=== PATIENT | female | born 1960 | race Caucasian/White ===

== ENCOUNTER 2017-10-14 10:14 | Emergency (ER) | payer MEDICARE, OTHER ==
[~2017-10-14] VITALS: Ht 152.4 cm; Wt 46.3 kg
[~2017-10-14 10:14] MED LIST: ACYC200 PO; ACYC800 PO; ALBU90OI6 INH; ALBUIS; ALPR.5 PO; ASPI81CH PO; Amoxicillin500 MG PO; CYCL10 PO; DIAZ2; FAMC500 PO; FAMO20 PO; Flecainide Acet50 MG PO; GABA300 PO; HYDACE5; HYDACE5 PO; HYDR1TAB94 PO; IBUP800 PO; LISI20 PO; LISI5 PO; LORA1 PO; METCAR500 PO; METO10 PO; NAPR500; NAPR500 PO; NAPR550; Norco 5-325 Ta1 EACH PO; PENVK500 PO; Pepcid40 MG PO; TRAM50; TRAM50 PO
[2017-10-14 11:26] LABS: Influenza A Negative (NEGATIVE); Influenza B Negative (NEGATIVE)
[2017-10-14] MEDS ORDERED: BENZ100A PO (11:44)
[2018-04-29] MEDS ORDERED: TRAM50 PO (12:34)
[2018-04-29] MEDS ORDERED: Hydrocodone-Ap1 EA23 PO (12:35)
[2018-04-29] MEDS ORDERED: CYCL10 PO (13:27)
[2018-04-29] MEDS ORDERED: IBUP800 PO (13:27)
== END 2017-10-14 11:52 | disposition home or self-care (01) ==
LOC: ER 10:14
PROVIDERS: Physician Assistant
DX: J32.9 Chronic sinusitis, unspecified (principal); Z88.5 Allergy status to narcotic agent; Z91.048 Other nonmedicinal substance allergy status; Z88.8 Allergy status to other drugs, medicaments and biological substances; Z79.899 Other long term (current) drug therapy; Z79.2 Long term (current) use of antibiotics; Z90.710 Acquired absence of both cervix and uterus; Z90.89 Acquired absence of other organs; Z87.891 Personal history of nicotine dependence
CPT/HCPCS: 71046; 87804; 99283

== ENCOUNTER 2017-11-22 12:16 | Emergency (ER) | payer MEDICARE, OTHER ==
[~2017-11-22] VITALS: Ht 152.4 cm; Wt 46.3 kg
[~2017-11-22 12:16] MED LIST changes: +BENZ100A PO
[2017-11-22] MEDS ORDERED: PRED20 PO (13:25)
[2017-11-22] MEDS ORDERED: SPACE CHAMBER1 EACH INH (13:25)
[2017-11-22] MEDS ORDERED: ALBU90OI INH (13:25)
[2017-11-22] MEDS ORDERED: DOXY100T53 PO (13:25)
[2018-04-29] MEDS ORDERED: TRAM50 PO (12:34)
[2018-04-29] MEDS ORDERED: Hydrocodone-Ap1 EA23 PO (12:35)
[2018-04-29] MEDS ORDERED: IBUP800 PO (13:27)
[2018-04-29] MEDS ORDERED: CYCL10 PO (13:27)
== END 2017-11-22 13:39 | disposition home or self-care (01) ==
LOC: ER 12:16
DX: J18.9 Pneumonia, unspecified organism (principal); Z88.5 Allergy status to narcotic agent; Z91.048 Other nonmedicinal substance allergy status; Z88.8 Allergy status to other drugs, medicaments and biological substances; Z79.899 Other long term (current) drug therapy; Z87.891 Personal history of nicotine dependence
CPT/HCPCS: 71046; 94640; 99284

== ENCOUNTER 2018-06-02 11:54 | Emergency (ER) | payer MEDICARE, OTHER ==
[~2018-06-02] VITALS: Ht 152.4 cm; Wt 49.9 kg
[~2018-06-02 11:54] MED LIST changes: +ALBU90OI INH; +DOXY100T53 PO; +Hydrocodone-Ap1 EA23 PO; +PRED20 PO; +SPACE CHAMBER1 EACH INH
[2018-06-02] MEDS ORDERED: NEOPOLHCSU RIGHTEAR (13:57)
[2018-06-02] MEDS ORDERED: Cipro250 MG PO (13:57)
[2018-06-02] MEDS ORDERED: IBUP800 PO (13:58)
== END 2018-06-02 14:07 | disposition home or self-care (01) ==
LOC: ER 11:54
DX: H60.91 Unspecified otitis externa, right ear (principal); Z87.891 Personal history of nicotine dependence
CPT/HCPCS: 99282

== ENCOUNTER → 2019-03-16 | Outpatient (CLI) | payer OTHER ==
[~2019-03-16] MED LIST changes: +Cipro250 MG PO; +ESCI10 PO; +NEOPOLHCSU RIGHTEAR; +OMEPRAZOLE20 MG PO; +VOLTAREN100 GM TOP
== END | disposition home or self-care (01) ==
LOC: LAB SHORT 12:08 → LAB EV 12:08
DX: N39.0 Urinary tract infection, site not specified (principal)
CPT/HCPCS: 87086

== ENCOUNTER 2019-06-10 06:40 | Day surgery (SDC) | payer OTHER ==
[~2019-06-10] VITALS: Ht 152.4 cm; Wt 56.2 kg
[~2019-06-10 06:40] MED LIST changes: -OMEPRAZOLE20 MG PO
[2019-06-10] MEDS ORDERED: TRAM50 PO (07:20)
--- NOTE | 2019-06-10 08:01 | NUR ---
06/10/19 0801 Kathy Beard PT UP TO RESTROOM WITH SBA. RESTING COMFORTABLY IN BED WITH CALL LIGHT WITHIN REACH. DENIES NEEDS AT THIS TIME.
--- NOTE | 2019-06-10 09:05 | NUR ---
06/10/19 0905 Yesenia Roberts LASER PRECAUTIONS TAKEN
--- NOTE | 2019-06-10 10:15 | NUR ---
06/10/19 1015 Marlena Boyd PT COMPLAINS OF 10/10 PAIN BUT REFUSES PAIN MEDICATION, SHE STATES SHE IS AFRAID THAT IT WILL MAKE HER SICK, SHE WAS MEDICATED FOR NAUSEA IN PAR AND IT HAS RESOLVED BUT SHE IS AFRAID IT WILL COME BACK AND WOULD LIKE TO TRY ICY FLUIDS AND REST. VSS, AND CALL LIGHT IS IN REACH.
[2019-07-06] MEDS ORDERED: OMEPRAZOLE20 MG PO (10:02)
== END 2019-06-10 10:57 | disposition home or self-care (01) ==
LOC: ORSCSDS 06:40
PROVIDERS: Otolaryngology
PROC: 0CBV8ZX Excision of Left Vocal Cord, Via Natural or Artificial Opening Endoscopic, Diagnostic (ICD-10-PCS; principal; 2019-06-10 08:15)
DX: J38.3 Other diseases of vocal cords (principal); I10 Essential (primary) hypertension; J44.9 Chronic obstructive pulmonary disease, unspecified; Z87.891 Personal history of nicotine dependence; Z79.899 Other long term (current) drug therapy
CPT/HCPCS: 88305; J0171; J0330; J1100; J1885; J2250; J2405; J2704; J2710; J2765; J3010; J7120

== ENCOUNTER 2019-07-09 09:30 | Day surgery (SDC) | payer OTHER ==
[~2019-07-09] VITALS: Ht 162.6 cm; Wt 57.8 kg
[~2019-07-09 09:30] MED LIST changes: +OMEPRAZOLE20 MG PO
--- NOTE | 2019-07-09 10:55 | NUR ---
07/09/19 1055 Serjio Glaser UPDATED PT ON DELAY IN ROOM DUE TO PREVIOUS CASES RUNNING LATE. PT DENIES ANY NEEDS AT THIS TIME. CALL LIGHT IN REACH. BED IN LOWEST LOCKED POSITION.
== END 2019-07-09 13:10 | disposition home or self-care (01) ==
LOC: ORSCSDS 09:30
PROVIDERS: Internal Medicine Gastroenterology
PROC: 0DB68ZX Excision of Stomach, Via Natural or Artificial Opening Endoscopic, Diagnostic (ICD-10-PCS; principal; 2019-07-09 11:00)
DX: R10.13 Epigastric pain (principal); K31.7 Polyp of stomach and duodenum; F41.9 Anxiety disorder, unspecified; Z79.899 Other long term (current) drug therapy
CPT/HCPCS: 88305; 88342; J2704; J7120

== ENCOUNTER 2019-08-06 07:34 | Day surgery (SDC) | payer OTHER ==
[~2019-08-06] VITALS: Ht 152.4 cm; Wt 56.8 kg
--- NOTE | 2019-08-06 09:39 | NUR ---
08/06/19 0939 Marlena Boyd PT COMPLAINS OF NAUSEA IN PAR AND DR RUBIO ADDS REGLAN 10MG TO HER LACTATED RINGERS AND LABLES THE BAG OF FLUIDS WELL. REPORT GIVEN TO [facility].
== END 2019-08-06 10:36 | disposition home or self-care (01) ==
LOC: ORSCSDS 07:34
PROVIDERS: Podiatrist Foot & Ankle Surgery
PROC: 0JBQ0ZZ Excision of Right Foot Subcutaneous Tissue and Fascia, Open Approach (ICD-10-PCS; principal; 2019-08-06 09:00)
DX: D17.39 Benign lipomatous neoplasm of skin and subcutaneous tissue of other sites (principal); I10 Essential (primary) hypertension; J44.9 Chronic obstructive pulmonary disease, unspecified; Z87.891 Personal history of nicotine dependence; Z79.899 Other long term (current) drug therapy
CPT/HCPCS: 88304; J0690; J2001; J2250; J2405; J2704; J2765; J3010; J7120

== ENCOUNTER → 2019-11-29 | Outpatient (CLI) | payer OTHER ==
[2019-11-29 15:17] LABS: BASOPHILS ABSOLUTE AUTO 0.13 K/mm3 (0.00-0.23); BASOPHILS PERCENT AUTO 2 % (0-2); EOSINOPHILS ABSOLUTE AUTO 0.25 K/mm3 (0.00-0.68); EOSINOPHILS PERCENT AUTO 3 % (0-6); Hematocrit 39.3 % (33.0-51.0); Hemoglobin 13.1 g/dL (11.5-16.0); IMMATURE GRAN ABSOLUTE AUTO 0.02 K/mm3 (0.00-0.10); IMMATURE GRAN PERCENT AUTO 0 % (0-1); LYMPHOCYTES ABSOLUTE AUTO 3.16 K/mm3 (0.84-5.20); LYMPHOCYTES PERCENT AUTO 35 % (21-46); MONOCYTES ABSOLUTE AUTO 0.68 K/mm3 (0.16-1.47); MONOCYTES PERCENT AUTO 8 % (4-13); Mean Corpuscular HGB 31.6 pg (26.0-34.0); Mean Corpuscular HGB Conc 33.3 g/dL (31.5-36.5); Mean Corpuscular Volume 95 fL (80-100); Mean Platelet Volume 11.1 fL (9.1-12.4); NEUTROPHILS ABSOLUTE AUTO 4.71 K/mm3 (1.96-9.15); NEUTROPHILS PERCENT AUTO 53 % (41-73); Platelet Count 366 K/mm3 (150-400); RDW Coefficient Variation 13.1 % (11.7-14.2); RDW Standard Deviation 45.1 fL (35.1-46.3); Red Blood Cell Count 4.14 M/mm3 (3.80-5.20); White Blood Cell Count 8.95 K/mm3 (4.00-11.30)
[2019-11-29 15:28] LABS: Alanine Aminotransfer (ALT/SGP 20 U/L (12-78); Albumin, Blood 3.8 g/dL (3.4-5.0); Alk Phos 114 U/L (40-126); Anion Gap 11 mmol/L (6-16); Aspartate Aminotrans (AST/SGOT 14 U/L (12-37); Bilirubin, Total 0.2 mg/dL (0.1-1.0); Blood Urea Nitrogen 14 mg/dL (8-24); Bun/Creatinine Ratio 18.7 (12.0-20.0); CO2, Blood 26 mmol/L (21-32); Calcium, Blood 8.8 mg/dL (8.5-10.1); Chloride, Blood 105 mmol/L (98-108); Creatinine, Blood 0.75 mg/dL (0.40-1.00); Globulin, Blood 3.8 g/dL (2.2-4.0); Glomerular Filtration Rate >60 (60-); Glucose, Blood 94 mg/dL (70-99); Potassium, Blood 3.8 mmol/L (3.5-5.5); Sodium, Blood 142 mmol/L (136-145); Total Protein, Blood 7.6 g/dL (6.4-8.2)
== END | disposition home or self-care (01) ==
LOC: LAB EV 15:12 → LAB SHORT 15:12
PROVIDERS: Physician Assistant
DX: R10.84 Generalized abdominal pain (principal); N39.0 Urinary tract infection, site not specified
CPT/HCPCS: 80053; 83690; 85025; 87086

== ENCOUNTER 2020-02-24 10:28 | Emergency (ER) | payer OTHER ==
[~2020-02-24] VITALS: Ht 152.4 cm; Wt 54.4 kg
[2020-02-24] MEDS ORDERED: HYDROCODON-ACE1 EAC3 PO (11:02)
[2020-02-24] MEDS ORDERED: CYCL10 PO (11:03)
[2020-02-24 11:27] LABS: Source, Urine Clean Catch
[2020-02-24 11:46] LABS: Bilirubin, Urine Neg (Neg); Blood, Urine 5+ (Neg); Glucose Qualitative, Urine Neg (Neg); Ketones, Urine Neg (Neg); Leukocyte Esterase, Urine 3+ (Neg); Nitrite, Urine Neg (Neg); Protein, Urine Neg (Neg); Specific Gravity, Urine 1.025 (1.003-1.022); Urobilinogen, Urine NORM (Normal)
[2020-02-24 11:48] LABS: BASOPHILS ABSOLUTE AUTO 0.11 K/mm3 (0.00-0.23); BASOPHILS PERCENT AUTO 1 % (0-2); EOSINOPHILS PERCENT AUTO 3 % (0-6); Hematocrit 41.7 % (33.0-51.0); Hemoglobin 13.4 g/dL (11.5-16.0); IMMATURE GRAN ABSOLUTE AUTO 0.02 K/mm3 (0.00-0.10); IMMATURE GRAN PERCENT AUTO 0 % (0-1); LYMPHOCYTES ABSOLUTE AUTO 2.53 K/mm3 (0.84-5.20); LYMPHOCYTES PERCENT AUTO 24 % (21-46); MONOCYTES ABSOLUTE AUTO 0.84 K/mm3 (0.16-1.47); MONOCYTES PERCENT AUTO 8 % (4-13); Mean Corpuscular HGB 31.7 pg (26.0-34.0); Mean Corpuscular HGB Conc 32.1 g/dL (31.5-36.5); Mean Corpuscular Volume 99 fL (80-100); Mean Platelet Volume 10.8 fL (9.1-12.4); NEUTROPHILS ABSOLUTE AUTO 6.76 K/mm3 (1.96-9.15); NEUTROPHILS PERCENT AUTO 64 % (41-73); Platelet Count 352 K/mm3 (150-400); RDW Coefficient Variation 12.8 % (11.7-14.2); Red Blood Cell Count 4.23 M/mm3 (3.80-5.20); White Blood Cell Count 10.56 K/mm3 (4.00-11.30)
[2020-02-24 11:59] LABS: Appearance, Urine Hazy (Clear); Color, Urine Yellow (P-Yellow)
[2020-02-24 12:00] LABS: Bacteria Few /hpf; Mucus Light (0-Heavy); Squamous Epithelial Cells Few /hpf (Few)
[2020-02-24 12:19] LABS: Alanine Aminotransfer (ALT/SGP 20 U/L (12-78); Albumin, Blood 3.7 g/dL (3.4-5.0); Albumin/Globulin Ratio 1.1 (0.8-1.8); Alk Phos 98 U/L (50-136); Anion Gap 6 mmol/L (6-16); Aspartate Aminotrans (AST/SGOT 13 U/L (12-37); Bilirubin, Total 0.3 mg/dL (0.1-1.0); Blood Urea Nitrogen 18 mg/dL (8-24); CO2, Blood 26 mmol/L (21-32); Calcium, Blood 9.1 mg/dL (8.5-10.1); Chloride, Blood 108 mmol/L (98-108); Globulin, Blood 3.5 g/dL (2.2-4.0); Glomerular Filtration Rate >60 (60-); Glucose, Blood 76 mg/dL (70-99); Potassium, Blood 4.1 mmol/L (3.5-5.5); Sodium, Blood 140 mmol/L (136-145); Total Protein, Blood 7.2 g/dL (6.4-8.2)
[2020-02-24] MEDS ORDERED: KEFLEX500 MG PO (12:30)
== END 2020-02-24 12:37 | disposition home or self-care (01) ==
LOC: ER 10:28
PROVIDERS: Emergency Medicine
DX: N39.0 Urinary tract infection, site not specified (principal); I10 Essential (primary) hypertension; Z88.8 Allergy status to other drugs, medicaments and biological substances; Z91.048 Other nonmedicinal substance allergy status; Z88.5 Allergy status to narcotic agent; Z79.899 Other long term (current) drug therapy; Z87.891 Personal history of nicotine dependence
CPT/HCPCS: 36415; 80053; 81001; 83690; 85025; 87086; 93005; 93010; 99284-25

== ENCOUNTER → 2020-04-21 | Outpatient (CLI) | payer OTHER ==
[~2020-04-21] MED LIST changes: +HYDROCODON-ACE1 EAC3 PO; +KEFLEX500 MG PO
== END ==
LOC: PLD 08:24 → LAB SHORT 08:24
DX: L57.0 Actinic keratosis (principal)
CPT/HCPCS: 88305

== ENCOUNTER → 2020-06-14 | Outpatient (CLI) | payer OTHER ==
[~2020-06-14] MED LIST changes: +VOLTAREN ARTHRI20 GM
== END | disposition home or self-care (01) ==
LOC: LAB SHORT 18:25 → LAB 18:25
DX: G89.4 Chronic pain syndrome (principal); Z79.899 Other long term (current) drug therapy
CPT/HCPCS: G0480

== ENCOUNTER 2020-06-22 07:34 | Day surgery (SDC) | payer OTHER ==
[~2020-06-22] VITALS: Ht 152.4 cm; Wt 54.5 kg
== END 2020-06-22 10:27 | disposition home or self-care (01) ==
LOC: ORSCSDS 07:34
PROVIDERS: Orthopaedic Surgery
PROC: 0LB50ZZ Excision of Right Lower Arm and Wrist Tendon, Open Approach (ICD-10-PCS; principal; 2020-06-22 09:00)
DX: M67.431 Ganglion, right wrist (principal); I10 Essential (primary) hypertension; J44.9 Chronic obstructive pulmonary disease, unspecified; Z87.891 Personal history of nicotine dependence; Z79.899 Other long term (current) drug therapy
CPT/HCPCS: 88304; J0171; J0690; J2250; J2405; J2704; J3010; J7120

== ENCOUNTER → 2020-08-16 | Outpatient (CLI) | payer OTHER ==
[2020-08-16 12:09] LABS: BASOPHILS ABSOLUTE AUTO 0.09 K/mm3 (0.00-0.23); BASOPHILS PERCENT AUTO 1 % (0-2); EOSINOPHILS ABSOLUTE AUTO 0.24 K/mm3 (0.00-0.68); EOSINOPHILS PERCENT AUTO 3 % (0-6); Hematocrit 39.2 % (33.0-51.0); Hemoglobin 12.7 g/dL (11.5-16.0); IMMATURE GRAN ABSOLUTE AUTO 0.01 K/mm3 (0.00-0.10); IMMATURE GRAN PERCENT AUTO 0 % (0-1); LYMPHOCYTES ABSOLUTE AUTO 2.25 K/mm3 (0.84-5.20); LYMPHOCYTES PERCENT AUTO 29 % (21-46); MONOCYTES ABSOLUTE AUTO 0.64 K/mm3 (0.16-1.47); MONOCYTES PERCENT AUTO 8 % (4-13); Mean Corpuscular HGB 31.2 pg (26.0-34.0); Mean Corpuscular HGB Conc 32.4 g/dL (31.5-36.5); Mean Corpuscular Volume 96 fL (80-100); Mean Platelet Volume 10.9 fL (9.1-12.4); NEUTROPHILS ABSOLUTE AUTO 4.46 K/mm3 (1.96-9.15); NEUTROPHILS PERCENT AUTO 58 % (41-73); Platelet Count 347 K/mm3 (150-400); RDW Coefficient Variation 13.5 % (11.7-14.2); RDW Standard Deviation 47.8 fL (35.1-46.3); Red Blood Cell Count 4.07 M/mm3 (3.80-5.20); White Blood Cell Count 7.69 K/mm3 (4.00-11.30)
[2020-08-16 12:26] LABS: Alanine Aminotransfer (ALT/SGP 17 U/L (12-78); Albumin, Blood 4.1 g/dL (3.4-5.0); Albumin/Globulin Ratio 1.4 (0.8-1.8); Alk Phos 86 U/L (40-126); Anion Gap 7 mmol/L (6-16); Aspartate Aminotrans (AST/SGOT 11 U/L (12-37); Bilirubin, Total 0.3 mg/dL (0.1-1.0); Blood Urea Nitrogen 16 mg/dL (8-24); CO2, Blood 28 mmol/L (21-32); Calcium, Blood 9.2 mg/dL (8.5-10.1); Chloride, Blood 106 mmol/L (98-108); Creatinine, Blood 0.94 mg/dL (0.40-1.00); Globulin, Blood 2.9 g/dL (2.2-4.0); Glomerular Filtration Rate >60 (60-); Glucose, Blood 77 mg/dL (70-99); Potassium, Blood 4.1 mmol/L (3.5-5.5); Sodium, Blood 141 mmol/L (136-145)
== END ==
LOC: LAB SHORT 12:00 → LAB EV 12:00
PROVIDERS: Family Medicine
DX: R10.9 Unspecified abdominal pain (principal)
CPT/HCPCS: 80053; 83690; 85025

== ENCOUNTER → 2022-09-28 | Outpatient (CLI) | payer OTHER ==
[2022-09-28 11:34] LABS: BASOPHILS ABSOLUTE AUTO 0.11 K/mm3 (0.00-0.23); BASOPHILS PERCENT AUTO 1 % (0-2); EOSINOPHILS ABSOLUTE AUTO 0.26 K/mm3 (0.00-0.68); EOSINOPHILS PERCENT AUTO 3 % (0-6); Hematocrit 39.6 % (33.0-51.0); Hemoglobin 12.9 g/dL (11.5-16.0); IMMATURE GRAN ABSOLUTE AUTO 0.03 K/mm3 (0.00-0.10); IMMATURE GRAN PERCENT AUTO 0 % (0-1); LYMPHOCYTES PERCENT AUTO 27 % (21-46); MONOCYTES PERCENT AUTO 9 % (4-13); Mean Corpuscular HGB 31.9 pg (26.0-34.0); Mean Corpuscular HGB Conc 32.6 g/dL (31.5-36.5); Mean Corpuscular Volume 98 fL (80-100); NEUTROPHILS ABSOLUTE AUTO 5.47 K/mm3 (1.96-9.15); NEUTROPHILS PERCENT AUTO 60 % (41-73); Platelet Count 507 K/mm3 (150-400); RDW Coefficient Variation 13.2 % (11.7-14.2); RDW Standard Deviation 47.8 fL (35.1-46.3); Red Blood Cell Count 4.04 M/mm3 (3.80-5.20); White Blood Cell Count 9.17 K/mm3 (4.00-11.30)
[2022-09-28 12:11] LABS: Albumin, Blood 3.4 g/dL (3.4-5.0); Albumin/Globulin Ratio 0.9 (0.8-1.8); Bilirubin, Total 0.3 mg/dL (0.1-1.0); Bun/Creatinine Ratio 15.9 (12.0-20.0); Calcium, Blood 9.4 mg/dL (8.5-10.1); Creatinine, Blood 0.75 mg/dL (0.40-1.00); Globulin, Blood 3.8 g/dL (2.2-4.0); Potassium, Blood 4.2 mmol/L (3.5-5.5); Total Protein, Blood 7.2 g/dL (6.4-8.2)
== END | disposition home or self-care (01) ==
LOC: LAB SHORT 11:27
PROVIDERS: Physician Assistant
DX: N39.0 Urinary tract infection, site not specified (principal); R10.9 Unspecified abdominal pain
CPT/HCPCS: 80053; 82150; 83690; 85025

== ENCOUNTER 2023-03-29 08:56 | Day surgery (SDC) | payer OTHER ==
[~2023-03-29] VITALS: Ht 152.4 cm; Wt 53.7 kg
[2023-03-29] MEDS ORDERED: HYDROCODONE-AC1 EA19 PO (09:29)
[2023-03-29] MEDS ORDERED: ATOR40TA (09:30)
[2023-03-29] MEDS ORDERED: METOPROLOL SUCC25 MG PO (09:30)
[2023-03-29 11:46] VITALS: BP 138/80
--- NOTE | 2023-03-29 12:13 | NUR ---
03/29/23 1213 Melida Coleman PT EXPRESSED DECREASE IN NAUSEA WITH MEDICATION GIVEN PER ORDERS, X1. PT DENIED PAIN. ABLE TO EAT AND DRINK WITH NO ISSUES. NO EMESIS. PT'S AT BEDSIDE FOR DISCHARGE TEACHING. VSS. SEE VS STRIP FOR COMPLETE DETAILS. PT CALM, COOPERATVIE, AND PLEASANT. EXPRESSED READINESS TO GO HOME.
== END 2023-03-29 12:10 | disposition home or self-care (01) ==
LOC: ORSCSDS 08:56
PROVIDERS: Podiatrist Foot & Ankle Surgery
PROC: 0JBR0ZX Excision of Left Foot Subcutaneous Tissue and Fascia, Open Approach, Diagnostic (ICD-10-PCS; principal; 2023-03-29 10:30)
DX: M67.472 Ganglion, left ankle and foot (principal); I10 Essential (primary) hypertension; E78.5 Hyperlipidemia, unspecified; J44.9 Chronic obstructive pulmonary disease, unspecified; Z87.891 Personal history of nicotine dependence; F41.9 Anxiety disorder, unspecified; Z79.899 Other long term (current) drug therapy
CPT/HCPCS: 88304; A9270; J0690; J1100; J1885; J2250; J2405; J2704; J2795; J3010; J7120

== ENCOUNTER → 2023-07-10 | Outpatient (CLI) | payer OTHER ==
[~2023-07-10] MED LIST changes: +ATOR40TA; +HYDROCODONE-AC1 EA19 PO; +METOPROLOL SUCC25 MG PO
[2023-07-10 13:00] LABS: BASOPHILS ABSOLUTE AUTO 0.08 K/mm3 (0.00-0.23); BASOPHILS PERCENT AUTO 1 % (0-2); EOSINOPHILS ABSOLUTE AUTO 0.54 K/mm3 (0.00-0.68); EOSINOPHILS PERCENT AUTO 5 % (0-6); Hematocrit 41.2 % (33.0-51.0); Hemoglobin 13.2 g/dL (11.5-16.0); IMMATURE GRAN ABSOLUTE AUTO 0.03 K/mm3 (0.00-0.10); IMMATURE GRAN PERCENT AUTO 0 % (0-1); LYMPHOCYTES ABSOLUTE AUTO 2.85 K/mm3 (0.84-5.20); LYMPHOCYTES PERCENT AUTO 28 % (21-46); MONOCYTES ABSOLUTE AUTO 0.72 K/mm3 (0.16-1.47); MONOCYTES PERCENT AUTO 7 % (4-13); Mean Corpuscular HGB 32.1 pg (26.0-34.0); Mean Corpuscular Volume 100 fL (80-100); Mean Platelet Volume 10.4 fL (9.1-12.4); NEUTROPHILS ABSOLUTE AUTO 5.83 K/mm3 (1.96-9.15); NEUTROPHILS PERCENT AUTO 58 % (41-73); Platelet Count 352 K/mm3 (150-400); RDW Coefficient Variation 12.9 % (11.7-14.2); RDW Standard Deviation 47.7 fL (35.1-46.3); Red Blood Cell Count 4.11 M/mm3 (3.80-5.20); White Blood Cell Count 10.05 K/mm3 (4.00-11.30)
[2023-07-10 13:30] LABS: Albumin/Globulin Ratio 1.3 (0.8-1.8); Bilirubin, Total 0.3 mg/dL (0.1-1.0); Bun/Creatinine Ratio 15.8 (12.0-20.0); Calcium, Blood 9.4 mg/dL (8.5-10.1); Creatinine, Blood 0.95 mg/dL (0.40-1.00); Globulin, Blood 3.1 g/dL (2.2-4.0); Potassium, Blood 4.1 mmol/L (3.5-5.5); Total Protein, Blood 7.1 g/dL (6.4-8.2)
== END ==
LOC: LAB SHORT 12:56 → LAB 12:56
PROVIDERS: Physician Assistant
DX: R31.9 Hematuria, unspecified (principal)
CPT/HCPCS: 80053; 85025

== ENCOUNTER 2025-02-10 05:57 | Day surgery (SDC) | payer OTHER ==
[~2025-02-10] VITALS: Ht 152.4 cm; Wt 56.8 kg
[2025-02-10] VITALS (8 sets, daily range): BP systolic 120–158; BP diastolic 70–99
[~2025-02-10 05:57] MED LIST changes: -ATOR40TA; +ATOR40TA PO; +Aspir 8181 MG PO; +METO50ER PO; +MIRALAX17 GM PO; +PSEU120ER PO; -VOLTAREN ARTHRI20 GM; +VOLTAREN ARTHRI20 GM TOP
[2025-02-10] MEDS ORDERED: CeFAZolin Sodium 2,000 MG in NS 100 ML IV SCH (06:15)
[2025-02-10] MEDS ORDERED: Lactated Ringer's 1,000 ML IV SCH (06:15)
[2025-02-10] MEDS ORDERED: CeFAZolin Sodium 2,000 MG VIAL ONE (06:50)
--- NOTE | 2025-02-10 06:52 | NUR ---
History, Chart, Medications and Allergies reviewed before start of procedure. Patient confirms NPO status and agrees with scheduled surgery. Pre-Op teaching done. Pt verbalizes understanding. Patient confirms NPO status and agrees with scheduled surgery. Patient reports completing Chlorhexadine shower X2 prior to admission to hospital. 2 iv attempts by Joana Cline rn - one in left hand and r ac. Iv started by Hilda Herndon rn 18g r hand.
[2025-02-10] MEDS ORDERED: Lidocaine HCl 1% 30 ML SDV ONE (07:11)
[2025-02-10] MEDS ORDERED: Bupivacaine 0.5% HCl 5 MG/ML 30MLVIAL ONE (07:11)
[2025-02-10] MEDS ORDERED: Dexamethasone Sod Phos 10 MG/ML 1ML VIAL ONE (07:12)
[2025-02-10] MEDS ORDERED: propofoL 20 ML IV ONE (07:12)
[2025-02-10] MEDS ORDERED: Ondansetron HCl 2 MG / ML 2ML Vial ONE ×2 (07:12→08:47)
[2025-02-10] MEDS ORDERED: Ketorolac Tromethamine 30mg Vial ONE (07:12)
[2025-02-10] MEDS ORDERED: FentaNYL Citrate 50 MCG/ML 2 ML Injection ONE ×2 (07:14)
[2025-02-10] MEDS ORDERED: Rocuronium Bromide 10 MG/ML 5ML Injection IV ONE (07:43)
[2025-02-10] MEDS ORDERED: HYDROmorphone HCl/Pf 1MG SYR IV PRN ×2 (08:10→08:15)
[2025-02-10] MEDS ORDERED: Sugammadex Sodium 200 MG/2ML SDV (100 MG/ML) ONE (08:13)
[2025-02-10] MEDS ORDERED: FentaNYL Citrate 50 MCG/ML 2 ML Injection IV PRN ×2 (08:15)
[2025-02-10] MEDS ORDERED: Ondansetron HCl 2 MG / ML 2ML Vial IV PRN (08:15)
[2025-02-10] MEDS ORDERED: Albuterol 2.5 MG/3 ML VIAL INH PRN (08:15)
[2025-02-10] MEDS ORDERED: Atropine Sulfate 0.1 MG/ML 10ML SYR IV PRN (08:15)
[2025-02-10] MEDS ORDERED: ePHEDrine Sulfate 50 MG/ML 1ML Injection IV PRN (08:15)
[2025-02-10] MEDS ORDERED: Labetalol HCL 5 MG/ML 4ML Injection (Single Dose) IV PRN (08:20)
[2025-02-10] MEDS ORDERED: Metoclopramide HCl 5MG / ML 2ML Vial IV PRN (08:20)
[2025-02-10] MEDS ORDERED: HYDROcodone 5-APAP 325 TAB PO PRN (08:35)
[2025-02-10] MEDS ORDERED: Metoclopramide HCl 5MG / ML 2ML Vial ONE (08:47)
--- NOTE | 2025-02-10 09:27 | NUR ---
Patient up to Ambulate independently. Gait steady. Discharge instructions reviewed with patient. Patient verbalizes understanding. Copy given to patient to take home. Patient States Post-Procedure ride home has been arranged. Discharged via wheelchair to private car for ride home. PT REPORTS NAUSEA BETTER, REPORTS JUST FEELS LIKE SHE NEEDS TO EAT. PT REPORTS READY TO GO HOME. PT REPORTS PAIN TOLERABLE. INCISION C/D/I.
== END 2025-02-10 09:27 | disposition home or self-care (01) ==
LOC: ORSCMMR 05:57 → ORD 07:30 → ORSCMMR 07:30
PROVIDERS: Surgery
PROC: 0JB70ZX Excision of Back Subcutaneous Tissue and Fascia, Open Approach, Diagnostic (ICD-10-PCS; principal; 2025-02-10 07:30)
DX: D17.1 Benign lipomatous neoplasm of skin and subcutaneous tissue of trunk (principal); I10 Essential (primary) hypertension; Z87.891 Personal history of nicotine dependence; E78.5 Hyperlipidemia, unspecified; K21.9 Gastro-esophageal reflux disease without esophagitis; Z79.899 Other long term (current) drug therapy; Z79.82 Long term (current) use of aspirin
CPT/HCPCS: 88304; J0690; J1100; J1885; J2405; J2704; J2765; J3010; J7120

== ENCOUNTER → 2025-03-26 | Outpatient (CLI) | payer OTHER ==
[2025-03-26 19:34] LABS: RBC Count, Synovial Fluid 10000 /mm3 (0-0)
[2025-03-26 19:52] LABS: WBC Count, Synovial Fluid 18500 /mm3 (0-180)
[2025-03-26 20:01] LABS: Color, Synovial Fluid Yellow (None-P Yel)
[2025-03-26 20:02] LABS: Appearance, Synovial Fluid Hazy (Clear)
[2025-03-26 20:51] LABS: Lymphs, Synovial Fluid 16 % (0-15); Neutrophils, Synovial Fluid 84 % (0-24)
== END ==
LOC: LAB SHORT 18:42 → LAB 18:42
PROVIDERS: Nurse Practitioner
DX: M25.461 Effusion, right knee (principal)
CPT/HCPCS: 89051